=== PATIENT | male | born 1960 | race Caucasian/White ===

== ENCOUNTER 2016-11-27 18:22 | Emergency (ER) | payer OTHER, MEDICAID ==
[2016-11-27 18:31] VITALS: BP 129/82
--- NOTE | 2016-11-27 18:43 | EDM.PDOC ---
ED HPI Skin/Rash - General Chief Complaint: Skin Complaint Stated Complaint: PAIN UNDER ABDOMINAL Time Seen by Provider: 11/27/16 18:29 - History of Present Illness INITIAL COMMENTS - FREE TEXT/NARRATIVE: HISTORY AND PHYSICAL: History of present illness: Patient is 56-year-old white male presents with a cutaneous abscess right lower abdomen he has multiple other cutaneous lesions he denies fever chills nausea vomiting or other concerns had similar episodes in the past she reports an allergy to sulfa Review of systems: As per history of present illness and below otherwise all systems reviewed and negative. Past medical history: As per history of present illness and as reviewed below otherwise noncontributory. Surgical history: As per history of present illness and as reviewed below otherwise noncontributory. Social history: No reported history of drug or alcohol abuse. Family history: As per history of present illness and as reviewed below otherwise noncontributory. Physical exam: HEENT: Atraumatic, normocephalic, pupils reactive, negative for conjunctival pallor or scleral icterus, mucous membranes moist, throat clear, neck supple, nontender, trachea midline. Lungs: Clear to auscultation, breath sounds equal bilaterally, chest nontender. Heart: S1S2, regular, negative for clicks, rubs, or JVD. Abdomen: Soft, nondistended, patient has an area right lower abdomen of approximately 3 x 4 cm fluctuant with erythema and tenderness he is multiple other superficial excoriated areas on the right abdomen. Negative for masses or hepatosplenomegaly. Negative for costovertebral tenderness. Pelvis: Stable nontender. Genitourinary: Deferred. Rectal: Deferred. Extremities: Atraumatic, negative for cords or calf pain. Neurovascular unremarkable. Neuro: Awake, alert, oriented. Cranial nerves II through XII unremarkable. Cerebellum unremarkable. Motor and sensory unremarkable throughout. Exam nonfocal. Diagnostics: None Therapeutics: Patient was prepped and draped Betadine incision and drainage with the 11 blade scalpel returned approximately 10 cc of foul-smelling freda pus was irrigated with copious amounts 0.9 normal saline and packed with quarter-inch iodoform gauze she tolerated procedure Impression: #1 cutaneous abscess right abdomen status post incision and drainage Definitive disposition and diagnosis as appropriate pending reevaluation and review of above. - Related Data Allergies Allergy/AdvReac Type Severity Reaction Status Date / Time Sulfa (Sulfonamide Allergy Itching Verified 11/27/16 18:28 Antibiotics) Home Meds: Ambulatory Orders Medication Instructions Recorded Confirmed . [No Known Home Meds] 11/27/16 11/27/16 Past Medical History - Past Health History Medical/Surgical History: Denies Medical/Surgical History Social & Family History - Family History Family Medical History: Noncontributory ED ROS GENERAL - Review of Systems Review Of Systems: ROS reveals no pertinent complaints other than HPI. ED EXAM, SKIN/RASH Exam: See Below (See dictation) Course - Vital Signs Last Recorded V/S: Last Vital Signs Temp 37.0 C 11/27/16 18:28 Pulse 89 11/27/16 18:28 Resp 22 H 11/27/16 18:28 BP 129/82 11/27/16 18:28 Pulse Ox 94 L 11/27/16 18:28 Departure - Departure Time of Disposition: 18:42 Disposition: Home, Self-Care 01 Condition: good Clinical Impression: Abscess Forms: ED Department Discharge Additional Instructions: The following information is given to patients seen in the emergency department who are being discharged to home. This information is to outline your options for follow-up care. We provide all patients seen in our emergency department with a follow-up referral. The need for follow-up, as well as the timing and circumstances, are variable depending upon the specifics of your emergency department visit. If you don't have a primary care physician on staff, we will provide you with a referral. We always advise you to contact your personal physician following an emergency department visit to inform them of the circumstance of the visit and for follow-up with them and/or the need for any referrals to a consulting specialist. The emergency department will also refer you to a specialist when appropriate. This referral assures that you have the opportunity for followup care with a specialist. All of these measure are taken in an effort to provide you with optimal care, which includes your followup. Under all circumstances we always encourage you to contact your private physician who remains a resource for coordinating your care. When calling for followup care, please make the office aware that this follow-up is from your recent emergency room visit. If for any reason you are refused follow-up, please contact the [facility] emergency department at and asked to speak to the emergency department charge nurse. Clindamycin as prescribed return 24-48 hours for reevaluation and packing removal follow up primary medical doctor one to 2 days return as needed as discussed
[2016-11-27] MEDS ORDERED: Sodium Chloride 0.9% 1,000 ML IV ONE (18:58)
== END 2016-11-27 19:10 | disposition home or self-care (01) ==
LOC: MW.ED 18:22
DX: L02.211 Cutaneous abscess of abdominal wall (principal); Z88.2 Allergy status to sulfonamides
CPT/HCPCS: 10061; 99283

== ENCOUNTER 2017-05-20 04:08 | Emergency (ER) | payer BC, MEDICAID, OTHER ==
--- NOTE | 2017-05-20 04:40 | EDM.PDOC ---
ED HPI GENERAL MEDICAL PROBLEM - General Chief Complaint: General Stated Complaint: TOOTH PAIN Time Seen by Provider: 05/20/17 04:36 Source of Information: Reports: Patient - History of Present Illness INITIAL COMMENTS - FREE TEXT/NARRATIVE: He presented with onset of toothache within the past 24 hours. 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 [No Known Home Meds] 11/27/16 [History] Past Medical History - Past Health History Medical/Surgical History: Denies Medical/Surgical History Social & Family History - Family History Family Medical History: Noncontributory - Tobacco Use Smoking Status *Q: Unknown Ever Smoked Second Hand Smoke Exposure: No - Caffeine Use Caffeine Use: Reports: None - Recreational Drug Use Recreational Drug Use: No ED ROS GENERAL - Review of Systems Review Of Systems: See Below (as per HPI) ED EXAM, GENERAL - Physical Exam Exam: See Below Free Text/Narrative:: alert diaphoretic neck supple marked diffuse gingival recession lungs: faint rales over the right lateral chest heart RRR without m abdomen: obese; non tender mouth: tenderness around tooth #19/20 normal distal perfusion in toes no ankle edema Course - Vital Signs Last Recorded V/S: Last Vital Signs Temp 100.4 F 05/20/17 04:22 Pulse 100 05/20/17 04:22 Resp 28 H 05/20/17 04:22 BP 130/82 05/20/17 04:22 Pulse Ox 97 05/20/17 04:22 - Orders/Labs/Meds Orders: Active Orders 24 hr Category Date Time Status Cardiac Monitoring [RC] . DIRECTED Care 05/20/17 04:34 Active EKG Documentation Completion [RC] STAT Care 05/20/17 04:31 Active Chest 1V Frontal [CR] Stat Exams 05/20/17 04:33 Taken CULTURE BLOOD [BC] Stat Lab 05/20/17 04:40 Received CULTURE BLOOD [BC] Stat Lab 05/20/17 05:02 Received Piperacillin/Tazobactam [Piperacil-Tazobact] 3.375 gm Med 05/20/17 04:45 Active Sodium Chloride 0.9% [Normal Saline] 50 ml IV Q6H Sodium Chloride 0.9% [Normal Saline] 1,000 ml Med 05/20/17 04:45 Active IV ASDIRECTED Blood Culture x2 Reflex Set [OM.PC] Stat Oth 05/20/17 04:33 Ordered Medication Orders Piperacillin Sod/Tazobactam (Sod 3.375 gm/ Sodium Chloride) 50 mls @ 100 mls/ hr IV Q6H LA Last Admin: 05/20/17 04:55 Dose: 100 mls/hr Sodium Chloride (Normal Saline) 1,000 mls @ 150 mls/hr IV ASDIRECTED LA Last Admin: 05/20/17 04:53 Dose: 150 mls/hr Labs: Laboratory Tests 05/20/17 05/20/17 05/20/17 Range/Units 04:40 04:40 04:40 WBC 12.06 H (4.0-11.0) K/uL RBC 4.99 (4.50-5.90) M/uL Hgb 15.5 (13.0-17.0) g/dL Hct 44.9 (38.0-50.0) % MCV 90.0 (80.0-98.0) fL MCH 31.1 (27.0-32.0) pg MCHC 34.5 (31.0-37.0) g/dL RDW Std Deviation 46.6 (28.0-62.0) fl RDW Coeff of Teresa 14 (11.0-15.0) % Plt Count 161 (150-400) K/uL MPV 9.30 (7.40-12.00) fL Neut % (Auto) 87.0 H (48.0-80.0) % Lymph % (Auto) 3.6 L (16.0-40.0) % [place] % (Auto) 9.0 (0.0-15.0) % Eos % (Auto) 0.3 (0.0-7.0) % Baso % (Auto) 0.1 (0.0-1.5) % Neut # (Auto) 10.5 H (1.4-5.7) K/uL Lymph # (Auto) 0.4 L (0.6-2.4) K/uL [place] # (Auto) 1.1 H (0.0-0.8) K/uL Eos # (Auto) 0.0 (0.0-0.7) K/uL Baso # (Auto) 0.0 (0.0-0.1) K/uL Nucleated RBC % 0.0 /100WBC Nucleated RBCs # 0 K/uL Lactate 1.0 (0.20-2.00) mmol/L Sodium 137 (136-146) mmol/L Potassium 5.1 (3.5-5.1) mmol/L Chloride 109 (98-110) mmol/L Carbon Dioxide 19 L (21-31) mmol/L BUN 9 (6.0-23.0) mg/dL Creatinine 0.9 (0.6-1.5) mg/dL Est Cr Clr Drug Dosing 93.73 mL/min Estimated GFR (MDRD) > 60.0 ml/min Glucose 120 H (60-110) mg/dL Calcium 8.8 (8.8-10.8) mg/dL Magnesium 2.2 (1.5-2.3) mEq/L Total Bilirubin 0.7 (0.1-1.5) mg/dL AST 27 (5-40) IU/L ALT 25 (8-54) IU/L Alkaline Phosphatase 43 (40-150) Troponin I (0.0-0.29) NG/ML B-Natriuretic Peptide (<100) PG/ML Total Protein 7.4 (6.0-8.0) g/dL Albumin 3.9 (3.5-5.0) g/dL Globulin 3.5 (2.0-3.5) g/dL Albumin/Globulin Ratio 1.1 L (1.3-2.8) Urine Color Urine Appearance Urine pH (5.0-8.0) Ur Specific [place] (1.001-1.035) Urine Protein (NEGATIVE) mg/dL Urine Glucose (UA) (NEGATIVE) mg/dL Urine Ketones (NEGATIVE) mg/dL Urine Occult Blood (NEGATIVE) Urine Nitrite (NEGATIVE) Urine Bilirubin (NEGATIVE) Urine Urobilinogen (<2.0) EU/dL Ur Leukocyte Esterase (NEGATIVE) Urine RBC (0-2/HPF) Urine WBC (0-5/HPF) Ur Epithelial Cells (NONE-FEW) Urine Bacteria (NEGATIVE) 05/20/17 05/20/17 05/20/17 Range/Units 04:40 04:40 05:55 WBC (4.0-11.0) K/uL RBC (4.50-5.90) M/uL Hgb (13.0-17.0) g/dL Hct (38.0-50.0) % MCV (80.0-98.0) fL MCH (27.0-32.0) pg MCHC (31.0-37.0) g/dL RDW Std Deviation (28.0-62.0) fl RDW Coeff of Teresa (11.0-15.0) % Plt Count (150-400) K/uL MPV (7.40-12.00) fL Neut % (Auto) (48.0-80.0) % Lymph % (Auto) (16.0-40.0) % [place] % (Auto) (0.0-15.0) % Eos % (Auto) (0.0-7.0) % Baso % (Auto) (0.0-1.5) % Neut # (Auto) (1.4-5.7) K/uL Lymph # (Auto) (0.6-2.4) K/uL [place] # (Auto) (0.0-0.8) K/uL Eos # (Auto) (0.0-0.7) K/uL Baso # (Auto) (0.0-0.1) K/uL Nucleated RBC % /100WBC Nucleated RBCs # K/uL Lactate (0.20-2.00) mmol/L Sodium (136-146) mmol/L Potassium (3.5-5.1) mmol/L Chloride (98-110) mmol/L Carbon Dioxide (21-31) mmol/L BUN (6.0-23.0) mg/dL Creatinine (0.6-1.5) mg/dL Est Cr Clr Drug Dosing mL/min Estimated GFR (MDRD) ml/min Glucose (60-110) mg/dL Calcium (8.8-10.8) mg/dL Magnesium (1.5-2.3) mEq/L Total Bilirubin (0.1-1.5) mg/dL AST (5-40) IU/L ALT (8-54) IU/L Alkaline Phosphatase (40-150) Troponin I < 0.10 (0.0-0.29) NG/ML B-Natriuretic Peptide < 15 (<100) PG/ML Total Protein (6.0-8.0) g/dL Albumin (3.5-5.0) g/dL Globulin (2.0-3.5) g/dL Albumin/Globulin Ratio (1.3-2.8) Urine Color YELLOW Urine Appearance CLEAR Urine pH 6.0 (5.0-8.0) Ur Specific [place] 1.010 (1.001-1.035) Urine Protein NEGATIVE (NEGATIVE) mg/dL Urine Glucose (UA) NEGATIVE (NEGATIVE) mg/dL Urine Ketones NEGATIVE (NEGATIVE) mg/dL Urine Occult Blood MODERATE (NEGATIVE) Urine Nitrite NEGATIVE (NEGATIVE) Urine Bilirubin NEGATIVE (NEGATIVE) Urine Urobilinogen 0.2 (<2.0) EU/dL Ur Leukocyte Esterase NEGATIVE (NEGATIVE) Urine RBC 0-3 (0-2/HPF) Urine WBC 0-1 (0-5/HPF) Ur Epithelial Cells RARE (NONE-FEW) Urine Bacteria RARE (NEGATIVE) Meds: Medications Generic Name Dose Route Start Last Admin Trade Name Freq PRN Reason Stop Dose Admin Piperacillin Sod/Tazobactam 50 mls @ 100 mls/hr 05/20/17 04:45 05/20/17 04:55 Sod 3.375 gm/ Sodium Chloride IV 100 mls/hr Q6H LA Administration Sodium Chloride 1,000 mls @ 150 mls/hr 05/20/17 04:45 05/20/17 04:53 Normal Saline IV 150 mls/hr ASDIRECTED LA Administration Departure - Departure Time of Disposition: 06:51 Disposition: Home, Self-Care 01 Condition: Fair Clinical Impression: Dental infection - Discharge Information Referrals: PCP,None [Primary Care Provider] - Forms: ED Department Discharge Additional Instructions: see a dentist as soon as you can. follow up promptly if you get worse. - My Orders Last 24 Hours: My Active Orders 05/20/17 04:31 EKG Documentation Completion [RC] STAT 05/20/17 04:33 Chest 1V Frontal [CR] Stat Blood Culture x2 Reflex Set [OM.PC] Stat 05/20/17 04:34 Cardiac Monitoring [RC] . DIRECTED 05/20/17 04:40 CULTURE BLOOD [BC] Stat 05/20/17 04:45 Piperacillin/Tazobactam [Piperacil-Tazobact] 3.375 gm Sodium Chloride 0.9% [ Normal Saline] 50 ml IV Q6H Sodium Chloride 0.9% [Normal Saline] 1,000 ml IV ASDIRECTED 05/20/17 05:02 CULTURE BLOOD [BC] Stat - Assessment/Plan Last 24 Hours: My Active Orders 05/20/17 04:31 EKG Documentation Completion [RC] STAT 05/20/17 04:33 Chest 1V Frontal [CR] Stat Blood Culture x2 Reflex Set [OM.PC] Stat 05/20/17 04:34 Cardiac Monitoring [RC] . DIRECTED 05/20/17 04:40 CULTURE BLOOD [BC] Stat 05/20/17 04:45 Piperacillin/Tazobactam [Piperacil-Tazobact] 3.375 gm Sodium Chloride 0.9% [ Normal Saline] 50 ml IV Q6H Sodium Chloride 0.9% [Normal Saline] 1,000 ml IV ASDIRECTED 05/20/17 05:02 CULTURE BLOOD [BC] Stat
[2017-05-20] MEDS ORDERED: Sodium Chloride 0.9% 1,000 ML IV SCH (04:45)
[2017-05-20] MEDS ORDERED: Piperacillin/Tazobactam 3.375 GM in Sodium Chloride 0.9% 50 ML IV SCH (04:45)
[2017-05-20 05:10] LABS: CHLORIDE,CL 109 mmol/L (98-110); SODIUM,NA 137 mmol/L (136-146)
[2017-05-20 07:20] VITALS: BP 142/80
--- NOTE | 2017-05-22 10:53 | CR ---
EXAM DATE: 05/20/17 PATIENT'S AGE: 57 Patient: ABDULKADIR STANFORD Facility: [place], [place] Site . Site : [id number] Study: XRay Chest [id number]/26/2017 5:03:02 AM Ordering Physician: Ramo Almanza Final Report: INDICATION: FEVER TECHNIQUE: Chest 1 view COMPARISON: None FINDINGS: Cardiovascular and mediastinum: Heart size and vasculature are normal in caliber and appearance. Mediastinum is within normal limits. Lungs and pleural space: No focal consolidation. No sign of pleural effusion. No pneumothorax. Bones and soft tissues: No significant findings. IMPRESSION: No acute cardiopulmonary disease. Dictated by Darin Raygoza MD @ 05/20/2017 5:37:25 AM Dictated by: Darin Raygoza MD @ 05/20/2017 05:37:33 (Electronic Signature) Report Signed by Proxy. [facility]Henry
== END 2017-05-20 07:10 | disposition home or self-care (01) ==
LOC: MW.ED 04:08
DX: K04.7 Periapical abscess without sinus (principal); Z88.2 Allergy status to sulfonamides
CPT/HCPCS: 71010; 80053; 81001; 83605; 83735; 83880; 84484; 85025; 87040; 93005; 96361; 96365; 99284; J2543; J7040; J7050; 87077; 99283